=== PATIENT | female | born 1965 | race Caucasian/White ===

== ENCOUNTER → 2016-12-03 | Outpatient (CLI) | payer BC ==
--- NOTE | 2016-12-03 20:51 | CONS ---
DATE OF CONSULTATION: 12/03/2016 This patient is a 51-year-old lady who has been evaluated in the sleep center for possible obstructive sleep apnea-hypopnea. HISTORY OF PRESENT ILLNESS/SLEEP-WAKE EVALUATION: Patient's usual sleep schedule on working days is from around 9 p.m. until 5 a.m. and on weekends from around 10 or 11 p.m. until 8 or 9 a.m. Sometimes she has difficulties falling asleep. She has a TV set in the bedroom. She sleeps on the back and side position with her , and according to him, she snores and has episodes of irregularities of breathing. Positive history of grinding teeth. She is using oral appliances to prevent grinding. She wakes up from sleep once. She rarely has nocturia. Patient has a positive history of seizures episodes, and most of the time the episodes start in the morning after awakening. [place] Sleepiness Scale is 8. PAST MEDICAL HISTORY: 1. Epilepsy with episodes of absence seizures and also episodes of tonic-clonic seizures. Last episode was about 2 years ago. 2. Hypothyroidism. MEDICATIONS: 1. Thyroxine. 2. Cyclobenzaprine. 3. Keppra. PAST SURGICAL HISTORY: Tonsillectomy. SOCIAL HISTORY: Negative for smoking. Alcohol consumption is occasional. FAMILY HISTORY: Hypertension, thyroid problems. REVIEW OF SYSTEMS: Awakenings with tiredness. History of episodes of seizures after awakening. Snoring. No fevers. No double vision. No recent chest pain. No shortness of breath. No abdominal pain. No bleeding episodes. No blood in urine. PHYSICAL EXAMINATION: GENERAL: A pleasant lady without distress. VITAL SIGNS: BP 107/62, HR 88, RR 16. Height 5 feet 2 inches. Weight 162. BMI 29.6. Neck 13 inches in circumference. Temperature is 98.2. Oxygen saturation at room air 97%. HEENT: PERRLA, EOMI. Evaluation of oropharynx showed tongue protrudes midline; moderate, close to extremely low position of soft palate. Very short distance between soft palate and pharyngeal wall. Small oropharyngeal air space. NECK: Supple. No JVD. Thyroid is not palpable. LUNGS: Clear to percussion and to auscultation. Good air exchange. No wheezing or rhonchi. HEART: S1, S2 regular. No murmurs, gallops or rubs. ABDOMEN: Slightly obese. EXTREMITIES: No clubbing or cyanosis. TOWER OBSERVER: Awake, alert, and oriented x3. Cranial nerves 2 to 7 intact. There is no fasciculation or atrophy noted. No focal deficits observed. IMPRESSION: 1. Snoring, small oropharyngeal air space, history of awakenings with tiredness; possible obstructive sleep apnea-hypopnea syndrome. 2. Overweight, close to obesity; body mass index 29.6. Patient's weight has increased during the last ( ) years by about 25 pounds. 3. History of seizures; several episodes in the morning after awakening. 4. Hypothyroidism. 5. Recent hot flashes, perimenopausal. 6. Status post uterus ablation ten years ago for bleeding. 7. Status post tonsillectomy. 8. History of sinusitis. 9. History of grinding teeth. PLAN: 1. Polysomnography for evaluation of patient's breathing during sleep. 2. CPAP/BiPAP titration if sleep study confirms obstructive sleep apnea-hypopnea syndrome. 3. Preferable position during sleep on the side. 4. No driving if patient feels any sleepiness. Patient is aware of civil and criminal liability for unsafe driving. 5. I will see patient for follow-up visit to explain results of the testing and following plan. Thank you very much for referring this patient for consultation. Sincerely, Donnie Brantley MD, PhD, FAASM. Diplomat of [place] [employer], Sleep Medicine Board by [place] [employer] [place] [employer] User Support Specialist of [facility] [place]
== END ==
LOC: SLEEP 16:59
PROVIDERS: ATTEND Internal Medicine
DX: R06.83 Snoring (principal); E66.9 Obesity, unspecified; E03.9 Hypothyroidism, unspecified; Z68.29 Body mass index [BMI] 29.0-29.9, adult; Z98.890 Other specified postprocedural states; Z79.899 Other long term (current) drug therapy
CPT/HCPCS: 99211